=== PATIENT | female | born 1970 | race African-American/Black ===

== ENCOUNTER → 2016-08-28 | Outpatient (CLI) | payer BC ==
[2015-02-17 01:33] VITALS: BP 175/81
[~2016-08-28] MED LIST: CYCL10TA2 PO; GABA-586 PO; IOHEXOL 180 MG/ML 10 ML VIAL. IT ONE; LIDOCAINE 1% Multi-Dose 20 ML VIAL. ID ONE; LOSA25TA4 PO; MELO-150 PO
--- NOTE | 2016-08-28 14:38 | KCIC ---
PROCEDURE Lumbar spine, flexion and extension views; fluoroscopic guided lumbar puncture for lumbar spine CT myelography; lumbar spine CT myelogram. HISTORY Lower back pain and left lower extremity radiculopathy. TECHNIQUE The risks of the procedure were discussed with the patient and written and verbal consent was obtained. A time-out was performed. Fluoroscopic imaging of the lumbar spine was performed and a site overlying L3-L4 was selected for needle entry. The skin overlying this region was sterilely prepped, draped and infiltrated with 1 percent lidocaine. A spinal needle was advanced into the thecal sac. Appropriate needle tip positioning was confirmed with spontaneous yield of cerebral spinal fluid within the needle hub. 15 cc Omnipaque 180 intrathecal contrast was then injected into the thecal sac. The needle was removed and a sterile bandage was placed at the needle entry site. Prone, lateral decubitus and flexion and extension views were obtained. The patient was then transferred to the CT suite for the post injection CT portion of the exam. For fluoroscopic images were obtained and the total fluoroscopy time was 1 minutes and 7 seconds. One or more of the following individualized dose reduction techniques were utilized for this examination: 1. Automated exposure control; 2. Adjustment of the mA and/or kV according to patient size; 3. Use of iterative reconstruction technique. Frontal, lateral, flexion and extension and coned sacral views were obtained prior to the fluoroscopic portion of the exam. COMPARISON MRI performed at an outside facility. FINDINGS The CT portion of the exam is limited due to patient body habitus. There is minimal retrolisthesis of L3 on L4, L4 on L5 and L5 on S1. There is degenerative endplate remodeling at all levels. There is disc space narrowing and vacuum phenomenon at L4-L5 and L5-S1, and to a lesser extent, disc space narrowing at L3-L4. The conus terminates at the L1-L2 disc space. There is no suspicious osseous lesion. There is degenerative subchondral sclerosis and vacuum phenomenon involving the sacroiliac joints. At L1-L2, there is a disc bulge and endplate remodeling. There is mild left greater than right facet arthropathy. There is no stenosis. At L2-L3, there is a disc bulge and endplate remodeling. There is minimal bilateral facet arthropathy. There is no stenosis. At L3-L4, there is a disc bulge and endplate osteophytosis. There is minimal facet arthropathy. There is minimal bilateral foraminal stenosis. At L4-L5, there are left greater than right foraminal to extra foraminal disc osteophyte complexes superimposed on a disc bulge and endplate osteophytosis. There is minimal facet arthropathy. There is mild to moderate bilateral foraminal stenosis. There is mild central canal stenosis. At L5-S1, there is a suspected broad-based posterior central to left paracentral disc protrusion superimposed on a disc bulge and endplate remodeling. There is mild bilateral facet arthropathy. There is epidural lipomatosis. There is mild right foraminal stenosis there is abutment of the traversing left greater than right S1 nerve roots and mild effacement of the thecal sac. There is no abnormal motion between flexion extension. There is mild hypomobility. IMPRESSION Multilevel degenerative change within the lumbar spine, predominately at L4-L5 and L5-S1. These findings are associated with mild to moderate bilateral foraminal and mild central canal stenosis at L4-L5 and mild right foraminal stenosis and effacement of the thecal sac with abutment of the traversing left greater than right S1 nerve roots at L5-S1. Electronically signed by: Merry Soto (Aug 28, 2016 14:36:42)
== END | disposition home or self-care (01) ==
LOC: KCIC 12:38
PROVIDERS: ATTEND Neurological Surgery
DX: M54.16 Radiculopathy, lumbar region (principal); M51.27 Other intervertebral disc displacement, lumbosacral region; M48.06 Spinal stenosis, lumbar region; M12.88 Other specific arthropathies, not elsewhere classified, other specified site; M47.896 Other spondylosis, lumbar region
CPT/HCPCS: 72110; 72132; 72265

== ENCOUNTER → 2016-08-29 | Outpatient (CLI) | payer BC ==
[2015-02-17 01:33] VITALS: BP 175/81
[~2016-08-29] MED LIST changes: -IOHEXOL 180 MG/ML 10 ML VIAL. IT ONE; -LIDOCAINE 1% Multi-Dose 20 ML VIAL. ID ONE
--- NOTE | 2016-08-29 14:59 | RAD ---
Limited bone scan, 08/29/2016: History: Low back pain Imaging of the lumbar spine was performed following IV injection of 26 mCi of technetium 99m MDP. No previous bone scan is available for comparison purposes. There is markedly increased activity in the upper lumbar spine at approximately the L2 level. The recent CT myelogram showed no clear bone destruction in this region. There is a suggestion of subtle patchy increased density within the L2 vertebral body on the CT images. The bone scan shows no other lumbar abnormality. IMPRESSION: Abnormal radionuclide uptake at approximately the L2 level. MR scanning is suggested for further evaluation.
== END | disposition home or self-care (01) ==
LOC: NM 07:05
PROVIDERS: ATTEND Neurological Surgery
DX: M54.16 Radiculopathy, lumbar region (principal)
CPT/HCPCS: 78300; 96374; A9503

== ENCOUNTER → 2016-10-09 | Outpatient (CLI) | payer BC ==
[2015-02-17 01:33] VITALS: BP 175/81
--- NOTE | 2016-10-10 11:02 | KCIC ---
Bilateral digital screening mammograms with CAD: HISTORY Routine screening. COMPARISON Comparison is made to previous studies dated 04/23/2015 and 05/29/2008. FINDINGS Breast density category B. The skin and nipples show no abnormalities. No abnormal lymph nodes are seen in the axilla. The breast parenchyma shows scattered fibroglandular density. There are patchy and nodular areas of parenchymal asymmetry which have not changed. There are no new dominant masses, suspicious calcifications or architectural distortions. IMPRESSION No evidence of malignancy. Recommend routine annual mammographic screening. This study was interpreted with the benefit of Computerized Aided Detection (CAD). Mammography is not 100% sensitive in detecting breast cancer. Therefore, a self breast exam and a clinical breast exam are very important. A negative mammogram does not negate a clinically suspicious finding and should not result in a delay in biopsying a clinically suspicious abnormality. BI-RADS category 2: Benign. This patient's information has been entered into a reminder system for the patient to be notified with the results of this examination and a target date for her next mammograms. Electronically signed by: Tri Singer MD (Oct 10, 2016 11:01:05)
== END | disposition home or self-care (01) ==
LOC: KCIC MAMMO 14:56
DX: Z12.31 Encounter for screening mammogram for malignant neoplasm of breast (principal)
CPT/HCPCS: G0202; 77067

== ENCOUNTER → 2019-07-28 | Outpatient (CLI) | payer OTHER ==
[2015-02-17 01:33] VITALS: BP 175/81
[~2019-07-28] MED LIST changes: -GABA-586 PO; +GABA300C18 PO; -LOSA25TA4 PO; +LOSA25TA54 PO; -MELO-150 PO; +MELO15TA23 PO
--- NOTE | 2019-07-28 17:47 | RAD ---
Ultrasound of the left upper arm 07/28/2019 CLINICAL HISTORY: Lump in the left upper arm. TECHNIQUE: A Real-time ultrasound examination of the soft tissues of the left arm in the area where the patient feels palpable abnormalities was performed. Multiple images were obtained. FINDINGS: No solid or cystic mass is seen within the visualized soft tissues of the left arm. IMPRESSION: Negative study. Electronically signed by: Leland Cruz MD (07/28/2019 5:44 PM) [id number]
== END | disposition home or self-care (01) ==
LOC: US 14:36
PROVIDERS: ATTEND Nurse Practitioner
DX: M79.89 Other specified soft tissue disorders (principal)
CPT/HCPCS: 76881

== ENCOUNTER → 2020-04-19 | Outpatient (CLI) | payer OTHER ==
[2015-02-17 01:33] VITALS: BP 175/81
[~2020-04-19] MED LIST changes: +ACET325T9 PO; +AMLO2.5T5 PO; +IBUP100T7 PO; +INSU100V8 SQ; +LIRA0.6P2 SQ; +METH500T7 PO; +NAPR220C4 PO; +PANT20TA2 PO
--- NOTE | 2020-04-19 10:22 | PDOC2 ---
INITIAL PAIN CONSULT DATE OF SERVICE: DOS: DATE: 04/19/20 TIME: 10:14 CHIEF COMPLAINT: Chief Complaint: Bilateral hip joint pain Low back pain with bilateral lower extremity pain HISTORY OF PRESENT ILLNESS: 49-year-old female presents history of pain bilateral hips and low back for about 4 years status post lumbar discectomy times 08/2018 and 2019 patient reports she did well with each of these but her hip is her main complaint now she has had significant pain that evaluated by orthopedics and had MRI scans of each hip showing grade 3 osteoarthritis of right and left hip with insertional tendinosis of the gluteus medius without discrete tears. Patient reports pain is worse with walking standing putting weight on her legs climbing steps or stairs standing for prolonged periods better with sitting or laying down but it awakens her from sleep about once or twice a night patient which does not affect her bowel bladder control no incontinence does affect her ability walk fairly significantly she uses a walker or cane she has a cane with her today. Patient has tried chiropractic treatment exercise she is doing currently physical therapy in the past as well as epidural injections prior to her lumbar surgery all of which helped to a moderate extent but nothing recently patient is taking meloxicam methocarbamol gabapentin gabapentin does seem to help with some of neuropathic pain in her feet but the others have not been significantly reducing the pain patient rates her ability from 0-10 10 being the worst is a 6 with family home responsibilities social activity 5 with recreation 9 with occupational activity 8 with sexual behavior 7 with self-care activities and/support activities. Describes pain is sharp and shooting in the hips and cells and into the groin bilaterally worse on the left than the right but present bilaterally with tingling and numbness in the legs aching cramping burning sensation in the low back and in the posterior hips and lateral hip as well as the groin worse again on the left side. Patient reports no loss of motor function but significant fatigability of the legs with walking and standing. PAST MEDICAL HISTORY: PMH: Type 2 diabetes, hypertension, arthritis, obesity PREVIOUS SURGERIES: Past Surgical Hx: Lumbar microdiscectomy 2018 and again in 2019 CURRENT MEDICATIONS: Current Meds: Active Scripts Medications Dose Route/Sig Max Daily Dose Days Date Category Methocarbamol 500 Mg Tablet 500 Mg PO QID 04/19/20 Reported Aleve (Naproxen Sodium) 220 Mg Capsule 220 Mg PO BID 04/19/20 Reported Advil (Ibuprofen) 100 Mg Tab.chew 100 Mg PO PRN 04/19/20 Reported Tylenol (Acetaminophen) 325 Mg Tablet 1-2 Tab PO QID 04/19/20 Reported Lantus (Insulin Glargine,Hum.rec.anlog) 100 Unit/1 Ml Vial 55 Unit SQ HS 04/19/20 Reported Victoza 3-Danny (Liraglutide) 0.6 Mg/0.1 Ml Pen.injctr 1.8 Mg SQ DAILY 04/19/20 Reported Amlodipine Besylate 2.5 Mg Tablet Unknown Dose PO DAILY 04/19/20 Reported Protonix (Pantoprazole Sodium) 20 Mg Tablet.dr 1 Tab PO DAILY 04/19/20 Reported Meloxicam 15 Mg Tablet 1 Tab PO DAILY 08/28/16 Reported Gabapentin (Gabapentin) 300 Mg Capsule 300 Mg PO TID 08/28/16 Reported ALLERGIES; Allergies: Coded Allergies: metformin (Verified Allergy, Severe, Diarrhea, 04/19/20) FAMILY HISTORY: Family Hx: Diabetes and hypertension SOCIAL HISTORY: Social Hx: Patient does not drink alcohol does not smoke does not use any illegal illicit recreational drugs is single lives locally in [facility] REVIEW OF SYSTEMS: ROS: Positive for those items mentioned in history of present illness, all systems are reviewed, otherwise negative, is complete full and well-documented on patient's chart PHYSICAL EXAM: VS: Blood pressure is 140/102 pulse 103 respirations 16 temperature 98.3 F height is 5 feet 7 inches weight is 311 pounds PE: PHYSICAL EXAMINATION: GENERAL: The patient is awake, alert, oriented, appropriate, very pleasant demeanor HEENT: Shows normocephalic, atraumatic. Extraocular movements are intact and symmetrical. Oral cavity: Mucous membranes moist and pink. Dentition is intact. NECK: Shows anterior throat supple without palpable lymphadenopathy noted. Swallow reflex symmetrical. CHEST: Shows normal on inspection. Breath sounds are clear bilaterally, no rales rhonchi wheezes auscultated. HEART: Shows S1, S2 clear. No murmurs auscultated. ABDOMEN: Soft, nontender, nondistended, obese. No palpable organomegaly is noted. No rebound or guarding demonstrated. BACK: Shows spine grossly in the midline. Normal-appearing cervical lordotic curvature. There is slightly increased thoracic kyphosis, some minor flattening of the lumbar lordotic curvature with well-healed surgical scarring noted. Lumbar paraspinous muscles show symmetrical on inspection, on palpation shows some moderate tenderness diffusely throughout the upper, middle and lower distribution of the paraspinous muscles bilaterally and also into the lower thoracic paraspinous musculature, firm and tender, but without specific trigger points, without radiation of pain. The patient has good rotational motion of the lumbar spine, both laterally as well as extension and flexion without significant difficulty. No tenderness over the spinous processes, sacrum or sacroiliac regions. EXTREMITIES: Lower extremities show deep tendon reflexes 1 in the patellar and tendo calcaneus tendons. Motor exam is 5 on a scale of 5 with right dorsiflexion, extension, quadriceps and hamstring flexion and 5/5 on the left. Peripheral pulses are 1+ posterior tibial. No peripheral edema is noted bilaterally. Lower extremities are warm and dry to touch, equal in color and appearance. Straight leg raise noted to be negative bilaterally. Gaenslen's maneuvers are negative as well. Patient has had positive Carlos's sign bilaterally worse on the left than the right. The patient is able to stand, stand on her toes without significant loss of balance is using a cane in her right hand ambulate. To favor left lower extremity slightly more than the right.. SKIN: Shows warm and dry, good turgor. No edema. No sores, rashes or bruising throughout. IMPRESSION: Impression: 49-year-old female with long history of low back and bilateral hip and lower extremity pain MRI scans bilateral hips as noted Type 2 diabetes Hypertension Arthritis Plan: Options were discussed with the patient including conservative medical management physical therapies interventional techniques and she like to pursue interventional techniques that she is doing exercise on her own now staying very active with history of physical therapy in the past. We discussed intra- articular bilateral hip joint injections using descriptions as well as anatomical model to describe the procedures. Patient is interested would like to proceed with this we will wait for preauthorization with her insurance provider once this is obtained we will have her return will start at the left hip it is more symptomatic for intra-articular hip joint injection with fluoroscopic guidance. In the meantime patient will be given Medrol Dosepak with instructions side effects to be aware of especially watching her blood sugar and will return as scheduled. VICKIE SMITH MD Apr 19, 2020 10:22
== END | disposition home or self-care (01) ==
LOC: PNCL 09:09
PROVIDERS: ATTEND Anesthesiology
DX: M54.5 Low back pain (principal); M25.552 Pain in left hip; M25.551 Pain in right hip; M79.662 Pain in left lower leg; M79.661 Pain in right lower leg; I10 Essential (primary) hypertension; E11.9 Type 2 diabetes mellitus without complications; M19.90 Unspecified osteoarthritis, unspecified site; Z98.890 Other specified postprocedural states; Z79.899 Other long term (current) drug therapy; Z83.3 Family history of diabetes mellitus; Z88.8 Allergy status to other drugs, medicaments and biological substances; Z79.84 Long term (current) use of oral hypoglycemic drugs
CPT/HCPCS: G0463

== ENCOUNTER → 2020-04-26 | Outpatient (CLI) | payer OTHER ==
[2015-02-17 01:33] VITALS: BP 175/81
--- NOTE | 2020-04-26 08:41 | PDOC ---
Progress Note - Pain Clinic Date of Service: DOS: DATE: 04/26/20 TIME: 08:34 Diagnosis: Dx: Bilateral hip joint pain with osteoarthritis post-lumbar laminectomy syndrome History or Present Illness: HPI: 49-year-old female returns follow-up status post initial evaluation and preauthorization for bilateral intra-articular hip joint injections. Patient would like to proceed reports of left is greater than the right with pain worse with standing walking changing positions better with sitting or laying down does not awaken her from sleep at night worse with standing with all of her weight on one leg such as climbing stairs or stepping up on steps patient reports her pain is a 7 on scale 10 is worse over the past week 7 on average for this least is a 7 today. Patient cries pain is cramping aching sharp also radiating to the lateral thighs worse on the left. Patient reports no new motor or sensory defic its no new bowel or bladder incontinence. Physical Exam: VS: Blood pressure is 146/97 pulse 94 respirations 18 temperature 98.4 F height is 5 foot 7 inches weight is 315 pounds PE: PHYSICAL EXAMINATION: GENERAL: The patient is awake, alert, oriented, appropriate, very pleasant demeanor HEENT: Shows normocephalic, atraumatic. Extraocular movements are intact and symmetrical. NECK: Shows anterior throat supple without palpable lymphadenopathy noted. Swallow reflex symmetrical. CHEST: Shows normal on inspection. Breath sounds are clear bilaterally. HEART: Shows S1, S2 clear. No murmurs auscultated. ABDOMEN: Soft, nontender, nondistended, obese. No palpable organomegaly is noted. No rebound or guarding demonstrated. BACK: Shows spine grossly in the midline. Normal-appearing cervical lordotic curvature. There is slightly increased thoracic kyphosis, some minor flattening of the lumbar lordotic curvature, with well-healed surgical scarring. Lumbar paraspinous muscles show symmetrical on inspection, on palpation shows some moderate tenderness diffusely throughout the upper, middle and lower distribution of the paraspinous muscles bilaterally without specific trigger points, without radiation of pain. The patient has good rotational motion of the lumbar spine, both laterally as well as extension and flexion without significant difficulty. No tenderness over the spinous processes, sacrum or sacroiliac regions. EXTREMITIES: Lower extremities show deep tendon reflexes 2+ in the patellar and tendo calcaneus tendons. Motor exam is 5 on a scale of 5 with right dorsiflexion, extension, quadriceps and hamstring flexion and 5/5 on the left. Peripheral pulses are 1+ posterior tibial. No peripheral edema is noted bilaterally. Lower extremities are warm and dry to touch, equal in color and appearance. Carlos's maneuvers are positive bilaterally worse on the left with external rotation of the hip and posterior displacement. SKIN: Shows warm and dry, good turgor. No edema. No sores, rashes or bruising throughout. Procedure: Procedure: Options were discussed with the patient. Patient will chart reviews her current medication regimen updated current review of systems updated today as well. We will proceed with a left intra-articular hip joint injection today with fluoroscopic guidance. Risks were discussed including but not limited to bleeding infection possibility of intravascular injection sequelae spread to local anesthetic and numbness side effects steroid medication spoke to fluoroscopy and poor results regarding pain control. Patient understands wished to proceed patient return to clinic in approximate 2 weeks for follow-up was counseled as to return appointment activity level and side effects to be aware. Medication Injected: Med Injected: Under sterile prep and drape patient in supine position using C-arm fluoroscopic guidance patient's left hip was prepped and draped in usual fashion using 1% lidocaine for skin anesthesia then following with a 7 inch 22-gauge Quincke needle with stylette the left hip joint was entered with confirmation with 3 cc of Omnipaque contrast with good spread into the hip joint itself without washout or uptake. At this time solution containing 3 cc of 0.25% bupivacaine and 80 mg Depo-Medrol was then injected into the hip joint needle was withdrawn and sterile bandage applied. Patient tolerated procedure well had no complications. Condition at Discharge: Condition at Discharge: Patient tolerated procedure well had no complications. VICKIE SMITH MD Apr 26, 2020 08:41
== END | disposition home or self-care (01) ==
LOC: PNCL 07:43
PROVIDERS: ATTEND Anesthesiology
DX: M16.0 Bilateral primary osteoarthritis of hip (principal); I10 Essential (primary) hypertension; E11.9 Type 2 diabetes mellitus without complications; Z79.84 Long term (current) use of oral hypoglycemic drugs; Z88.8 Allergy status to other drugs, medicaments and biological substances; Z79.899 Other long term (current) drug therapy; Z83.3 Family history of diabetes mellitus
CPT/HCPCS: 20610; 77002

== ENCOUNTER → 2020-11-17 | Outpatient (CLI) | payer OTHER ==
[2015-02-17 01:33] VITALS: BP 175/81
[~2020-11-17] MED LIST changes: +METH-561 PO; -METH500T7 PO
[2020-11-17 14:52] LABS: BASO % 0 % (0-3); EOS # 0.2 x10^3/uL (0.0-0.7); EOS % 1 % (0-3); HEMATOCRIT 38.2 % (36.0-47.0); HEMOGLOBIN 12.1 g/dL (12.0-15.5); LYMPH # 1.8 x10^3/uL (1.0-4.8); LYMPH % 14 % (24-48); MEAN CORPUSCULAR HEMOGLOBIN 24 pg (25-35); MEAN CORPUSCULAR HGB CONC 32 g/dL (31-37); MEAN CORPUSCULAR VOLUME 76 fL (79-100); MONO # 0.7 x10^3/uL (0.0-1.1); MONO % 6 % (0-9); NEUT % 79 % (31-73); PLATELET COUNT 390 x10^3/uL (140-400); RED BLOOD COUNT 5.01 x10^6/uL (3.50-5.40); WHITE BLOOD COUNT 12.7 x10^3/uL (4.0-11.0)
[2020-11-17 15:00] LABS: CALCIUM 8.9 mg/dL (8.5-10.1); CREATININE 0.7 mg/dL (0.6-1.0); GFR 107.6; POTASSIUM 3.8 mmol/L (3.5-5.1)
[2020-11-17 15:17] LABS: ALBUMIN 3.1 g/dL (3.4-5.0); ALBUMIN/GLOBULIN RATIO 0.6 (1.0-1.7); TOTAL BILIRUBIN 0.4 mg/dL (0.2-1.0); TOTAL PROTEIN 8.1 g/dL (6.4-8.2)
== END ==
LOC: ONCLAB 13:28
PROVIDERS: ATTEND Internal Medicine Hematology & Oncology
DX: D72.828 Other elevated white blood cell count (principal)
CPT/HCPCS: 80053; 82607; 82728; 82746; 83540; 83550; 85025; 85240